=== PATIENT | female | born 1985 | race American Indian/Alaskan Native ===

== ENCOUNTER 2020-12-13 14:40 | Emergency (ER) | payer OTHER ==
[2020-12-13] MEDS ORDERED: KETOROLAC 60 MG/2 ML INJ IM ONE (16:45)
--- NOTE | 2020-12-13 16:45 | Emergency Department Report ---
ED ENT HPI - General Chief complaint: Earache Stated complaint: VOMITING/DIARRHEA EAR PAIN Time Seen by Provider: 12/13/20 16:44 Source: patient Mode of arrival: Ambulatory Limitations: No Limitations - History of Present Illness Initial comments: 35 yr old female presents to ED with complaints of left ear pain. Patient states she has been having issues with her ears including left ear pain "for a while". She states she saw an hydrometeorology teacher one several years ago and was told that she was losing her hearing in her right ear and possibly had Mnire's disease. She states that her PCP is at the [facility] and she been try to get a referral to a market research coordinator but has been unsuccessful. She does have a history of allergies and has been taking loratadine as well as Flonase. Patient states that she went to [facility] last week because the pain the left ear got worse. She was diagnosed with otitis media to the left ear and was prescribed an antibiotic which she completed but 2 days ago the pain got worse again in the left ear with associated headache mainly to the crown and occipital aspect of her head, and the pain radiates down into her neck and her back and she states that she has been nauseous and has vomited 4 times and has had 3 episodes of diarrhea in the past 2 days. She reports no other symptoms at this time. MD complaint: ear pain -: year(s) - Related Data Previous Rx's Medication Instructions Recorded Last Taken Type Ibuprofen [Motrin] 800 mg PO Q8HR PRN #30 tablet 12/13/20 Unknown Rx Ondansetron [Zofran Odt] 4 mg PO Q8HR PRN #10 tab.rapdis 12/13/20 Unknown Rx methylPREDNISolone [Medrol 4MG 4 mg PO DAILY #1 tab.ds.pk 12/13/20 Unknown Rx DOSEPAK (21 tabs)] Allergies Allergy/AdvReac Type Severity Reaction Status Date / Time Penicillins Allergy Hives Verified 12/13/20 15:33 ED Dental HPI - General Chief complaint: Earache Stated complaint: VOMITING/DIARRHEA EAR PAIN Time Seen by Provider: 12/13/20 16:44 Source: patient Mode of arrival: Ambulatory Limitations: No Limitations - Related Data Previous Rx's Medication Instructions Recorded Last Taken Type Ibuprofen [Motrin] 800 mg PO Q8HR PRN #30 tablet 12/13/20 Unknown Rx Ondansetron [Zofran Odt] 4 mg PO Q8HR PRN #10 tab.rapdis 12/13/20 Unknown Rx methylPREDNISolone [Medrol 4MG 4 mg PO DAILY #1 tab.ds.pk 12/13/20 Unknown Rx DOSEPAK (21 tabs)] Allergies Allergy/AdvReac Type Severity Reaction Status Date / Time Penicillins Allergy Hives Verified 12/13/20 15:33 ED Review of Systems ROS: Stated complaint: VOMITING/DIARRHEA EAR PAIN Other details as noted in HPI Comment: All other systems reviewed and negative Constitutional: denies: chills, fever Eyes: denies: eye pain, eye discharge, vision change ENT: ear pain. denies: dental pain, hearing loss, epistaxis, congestion Respiratory: denies: cough, shortness of breath, SOB with exertion, SOB at rest, wheezing Cardiovascular: denies: chest pain, palpitations, edema, syncope, paroxysmal nocturnal dyspnea Gastrointestinal: nausea, vomiting. denies: abdominal pain, diarrhea, constipation, hematemesis, melena, hematochezia Genitourinary: denies: urgency, dysuria, frequency, hematuria, discharge, abnormal menses, dyspareunia Musculoskeletal: denies: back pain, joint swelling, arthralgia, myalgia Skin: denies: rash, lesions, change in color, change in hair/nails, pruritus Neurological: headache. denies: weakness, numbness, paresthesias, confusion, abnormal gait, vertigo Psychiatric: denies: anxiety, depression, auditory hallucinations, visual hallucinations, homicidal thoughts, suicidal thoughts Hematological/Lymphatic: denies: easy bleeding, easy bruising, swollen glands ED Past Medical Hx - Past Medical History Previous Medical History?: Yes Hx Asthma: Yes - Surgical History Past Surgical History?: Yes Additional Surgical History: Tonsils, TL - Medications Home Medications: Home Medications Medication Instructions Recorded Confirmed Last Taken Type Ibuprofen [Motrin] 800 mg PO Q8HR PRN #30 tablet 12/13/20 Unknown Rx Ondansetron [Zofran Odt] 4 mg PO Q8HR PRN #10 tab.rapdis 12/13/20 Unknown Rx methylPREDNISolone [Medrol 4MG 4 mg PO DAILY #1 tab.ds.pk 12/13/20 Unknown Rx DOSEPAK (21 tabs)] ED Physical Exam - General Limitations: No Limitations General appearance: alert, in no apparent distress - Head Head exam: Present: atraumatic, normocephalic, normal inspection - Eye Eye exam: Present: normal appearance, PERRL, EOMI Pupils: Present: normal accommodation - Expanded ENT Exam Expanded TM/Canal exam: Effusion: Right TM, Left TM Mouth exam: Present: normal external inspection. Absent: drooling, trismus, muffled voice, tongue normal, tongue elevation, laceration Throat exam: Positive: normal inspection. Negative: tonsillar erythema, tonsillomegaly, tonsillar exudate, R peritonsillar mass, L peritonsillar mass - Neck Neck exam: Present: normal inspection, full ROM. Absent: tenderness, meningismus - Respiratory Respiratory exam: Present: normal lung sounds bilaterally. Absent: respiratory distress, wheezes, rales, rhonchi - Cardiovascular Cardiovascular Exam: Present: regular rate, normal rhythm, normal heart sounds - GI/Abdominal GI/Abdominal exam: Present: soft. Absent: distended, tenderness, guarding, rebound - Neurological Exam Neurological exam: Present: alert, oriented X3, CN II-XII intact, normal gait - Psychiatric Psychiatric exam: Present: normal affect, normal mood - Skin Skin exam: Present: intact ED Course Vital Signs 12/13/20 12/13/20 15:33 17:22 Temperature 99.0 F Pulse Rate 83 75 Respiratory 18 Rate Blood Pressure 154/104 Blood Pressure 150/94 [Right] O2 Sat by Pulse 100 Oximetry ED Medical Decision Making - Medical Decision Making 35 yr old female presents to ED with complaints of left ear pain. Patient states she has been having issues with her ears including left ear pain "for a while". She states she saw an hydrometeorology teacher one several years ago and was told that she was losing her hearing in her right ear and possibly had Mnire's disease. She states that [facility] and she been try to get a referral to a market research coordinator but has been unsuccessful. She does have a history of allergies and has been taking loratadine as well as Flonase. Patient states that she went to [facility] because the pain the left ear got worse. She was diagnosed with otitis media to the left ear and was prescribed an antibiotic which she completed but 2 days ago the pain got worse again in the left ear with associated headache mainly to the crown and occipital aspect of her head, and the pain radiates down into her neck and her back and she states that she has been nauseous and has vomited 4 times and has had 3 episodes of diarrhea in the past 2 days. She reports no other symptoms at this time. Patient is well-appearing, not toxic and not in any acute distress. She appears well-hydrated. She is awake alert and oriented x3 and neurologically intact with a normal gait. Physical exam does not show any signs of perforated eardrum, otitis media or otitis externa, mastoiditis, meningitis or any other intracranial abnormality, and she has a soft nontender abdomen. No active vomiting during stay. No signs of sepsis.There is no indication for any testing or imaging at this time. Symptoms could be viral related at this time, diarrhea could even be related to the antibiotics which she just completed (not concerned for C-diff a this time). Discussed suspected diagnosis and treatment plan with patient. Informed her she really needs to follow-up with ENT for evaluation of her ear pain. Patient expressed understanding of instructions and agree with plan. Upon discharge when triage nurse repeated her blood pressure, the repeat blood pressure was 168/100 and again 154/104. Patient denied any significant past medical history including history of hypertension but she does admit that whenever she would go to the ER her blood pressure would be up but has never been addressed by her primary care doctor. Informed patient that will give dose of clonidine here, and recheck her BP after a few minutes but looks like we will have to start on her low dose BP meds and have her f/u with PCP to continue monitoring her BP. Pt expressed understanding of instructions and agreed with plan. 1828: Called patient several times to have a blood pressure rechecked but she was noted to be found. Patient apparently left the ER without notifying myself or the nurse at triage. She left with initial discharge instructions and before I could make any adjustments to the discharge instructions and prescribe her the blood pressure medication. Critical care attestation.: If time is entered above; I have spent that time in minutes in the direct care of this critically ill patient, excluding procedure time. ED Disposition Clinical Impression: Chronic left ear pain, Eustachian tube dysfunction, Headache, Vomiting and diarrhea, Uncontrolled hypertension Disposition: ELOPED Is pt being admited?: No Does the pt Need Aspirin: No Condition: Stable Instructions: Diarrhea, Adult, Eustachian Tube Dysfunction, Tension Headache, Adult, [id number], Nausea and Vomiting, Adult, [id number], Earache, Adult, Hypertension (ED) Additional Instructions: I recommend that you continue taking your antihistamine daily, also use the nasal spray that you have at home consistently and daily as prescribed. Take the Medrol Dosepak and ibuprofen as prescribed. Zofran as prescribed to help with nausea. You can take Imodium from [id number] if you continue to have diarrhea. Most importantly I recommend that you follow-up with an market research coordinator for further evaluation of your ear pain. Return to the ER if your symptoms changes or worsens in any way. Prescriptions: methylPREDNISolone [Medrol 4MG DOSEPAK (21 tabs)] 4 mg PO DAILY #1 tab.ds.pk Ibuprofen [Motrin] 800 mg PO Q8HR PRN #30 tablet PRN Reason: pain Ondansetron [Zofran Odt] 4 mg PO Q8HR PRN #10 tab.rapdis PRN Reason: Nausea Referrals: DANAY DONOVAN MD [Staff Physician] - 3-5 Days Forms: Work/School Release Form(ED) Time of Disposition: 16:58
[2020-12-13] MEDS ORDERED: ONDANSETRON 4 MG ODT TAB PO ONE (16:48)
[2020-12-13] MEDS ORDERED: cloNIDine 0.2 MG TAB PO ONE (17:21)
[2020-12-13 17:23] VITALS: BP 154/104
== END 2020-12-13 18:26 | disposition left against medical advice (07) ==
LOC: ED 14:40
DX: H69.82 Other specified disorders of Eustachian tube, left ear (principal); J45.909 Unspecified asthma, uncomplicated; H92.02 Otalgia, left ear; G89.29 Other chronic pain; R51.9 Headache, unspecified; R11.10 Vomiting, unspecified; R19.7 Diarrhea, unspecified; I10 Essential (primary) hypertension; Z98.890 Other specified postprocedural states; Z79.1 Long term (current) use of non-steroidal anti-inflammatories (NSAID); Z79.899 Other long term (current) drug therapy; Z88.0 Allergy status to penicillin
CPT/HCPCS: 96372; 99282; J1885; Q0162

== ENCOUNTER 2021-04-17 20:56 | Emergency (ER) | payer OTHER ==
[2021-04-17 22:06] VITALS: BP 131/88
[2021-04-17 22:48] LABS: Basophils % (Auto) 0.3 % (0.0-1.8); Eosinophils # (Auto) 0.3 K/mm3 (0.0-0.4); Eosinophils % (Auto) 3.2 % (0.0-4.3); Hematocrit 41.3 % (30.3-42.9); Hemoglobin 13.6 gm/dl (10.1-14.3); Lymphocytes # (Auto) 3.4 K/mm3 (1.2-5.4); Lymphocytes % (Auto) 37.3 % (13.4-35.0); Mean Corpuscular HGB Conc 33 % (30-34); Mean Corpuscular Volume 96 fl (79-97); Monocytes # (Auto) 0.7 K/mm3 (0.0-0.8); Monocytes % (Auto) 7.8 % (0.0-7.3); Platelet Count 310 K/mm3 (140-440); Red Cell Distribution Width 13.9 % (13.2-15.2)
[2021-04-17 22:56] LABS: Alanine Aminotransferase 16 units/L (7-56); Albumin 4.4 g/dL (3.9-5); BUN/Creatinine Ratio 14; Blood Urea Nitrogen 15 mg/dL (7-17); Calcium 10.1 mg/dL (8.4-10.2); Hemolysis Index 6
--- NOTE | 2021-04-17 22:58 | Emergency Department Report ---
ED General Adult HPI - General Stated complaint: POSSIBLE UTI Time Seen by Provider: 04/17/21 22:13 - History of Present Illness Initial comments: 35-year-old -Citizen Of The [place] female presents emergency department complaining of being treated for urinary tract infection but 3 to 4 weeks ago was still having some of the same residual symptoms. Just took her medications and is entirely continued to have a burning sensation with urination. She reports no headache no hematuria no fever, chills, sweats no chest pain or palpitations no nausea no vomiting. Is also been experiencing some bloating after eating and extreme heartburn and what ever medication she was using [id number] is not quite resolving the issue. Consistency: constant Improves with: none Associated Symptoms: denies other symptoms Treatments Prior to Arrival: none - Related Data Previous Rx's Medication Instructions Recorded Last Taken Type Ibuprofen [Motrin] 800 mg PO Q8HR PRN #30 tablet 12/13/20 Unknown Rx Ondansetron [Zofran Odt] 4 mg PO Q8HR PRN #10 tab.rapdis 12/13/20 Unknown Rx methylPREDNISolone [Medrol 4MG 4 mg PO DAILY #1 tab.ds.pk 12/13/20 Unknown Rx DOSEPAK (21 tabs)] Bismuth Subsalicylate 262 mg PO BID #30 tab.chew 04/18/21 Unknown Rx [Pepto-Bismol] Omeprazole 40 mg PO DAILY #30 capsule.dr 04/18/21 Unknown Rx Ondansetron [Zofran Odt] 4 mg PO Q8HR #20 tab.rapdis 04/18/21 Unknown Rx Tetracycline HCl 500 mg PO BID #20 capsule 04/18/21 Unknown Rx metroNIDAZOLE [Flagyl TAB] 500 mg PO Q12HR #20 tab 04/18/21 Unknown Rx Allergies Allergy/AdvReac Type Severity Reaction Status Date / Time Penicillins Allergy Hives Verified 12/13/20 15:33 ED Review of Systems ROS: Stated complaint: POSSIBLE UTI Other details as noted in HPI Comment: All other systems reviewed and negative ED Past Medical Hx - Past Medical History Hx Asthma: Yes - Surgical History Past Surgical History?: Yes Additional Surgical History: Tonsils, TL - Social History Smoking Status: Never Smoker Substance Use Type: None - Medications Home Medications: Home Medications Medication Instructions Recorded Confirmed Last Taken Type Ibuprofen [Motrin] 800 mg PO Q8HR PRN #30 tablet 12/13/20 Unknown Rx Ondansetron [Zofran Odt] 4 mg PO Q8HR PRN #10 tab.rapdis 12/13/20 Unknown Rx methylPREDNISolone [Medrol 4MG 4 mg PO DAILY #1 tab.ds.pk 12/13/20 Unknown Rx DOSEPAK (21 tabs)] Bismuth Subsalicylate 262 mg PO BID #30 tab.chew 04/18/21 Unknown Rx [Pepto-Bismol] Omeprazole 40 mg PO DAILY #30 capsule.dr 04/18/21 Unknown Rx Ondansetron [Zofran Odt] 4 mg PO Q8HR #20 tab.rapdis 04/18/21 Unknown Rx Tetracycline HCl 500 mg PO BID #20 capsule 04/18/21 Unknown Rx metroNIDAZOLE [Flagyl TAB] 500 mg PO Q12HR #20 tab 04/18/21 Unknown Rx ED Physical Exam - General General appearance: alert, in no apparent distress - Head Head exam: Present: atraumatic, normocephalic - Eye Eye exam: Present: normal appearance, PERRL, EOMI Pupils: Present: normal accommodation - ENT ENT exam: Present: normal orophraynx, mucous membranes dry, mucous membranes moist, TM's normal bilaterally - Neck Neck exam: Present: normal inspection, full ROM. Absent: thyromegaly - Respiratory Respiratory exam: Present: normal lung sounds bilaterally. Absent: respiratory distress, chest wall tenderness, decreased breath sounds - Cardiovascular Cardiovascular Exam: Present: regular rate, normal rhythm. Absent: systolic murmur, diastolic murmur, rubs, gallop - GI/Abdominal GI/Abdominal exam: Present: soft, normal bowel sounds - Extremities Exam Extremities exam: Present: normal inspection - Back Exam Back exam: Present: normal inspection - Neurological Exam Neurological exam: Present: alert, oriented X3 - Psychiatric Psychiatric exam: Present: normal affect, normal mood - Skin Skin exam: Present: warm, dry, intact, normal color. Absent: rash ED Course Vital Signs 04/17/21 22:04 Temperature 98.6 F Pulse Rate 85 Respiratory 18 Rate Blood Pressure 131/88 O2 Sat by Pulse 99 Oximetry ED Medical Decision Making - Lab Data Result diagrams: 04/17/21 22:22 04/17/21 22:22 - Medical Decision Making This patient presents with abdominal pain of unclear etiology. Their evaluation has not identified a emergent etiology for the abdominal pain. Specifically, given the very benign exam, normal laboratory studies, and lack of significant risk factors, I have a very low suspicion for appendicitis, ischemic bowel, bowel perforation, or any other life threatening disease. I have discussed with the patient the level of uncertainty with undifferentiated abdominal pain and clearly explained the need to follow-up as noted on the discharge instructions, or return to the Emergency Department immediately if the pain worsens, develops fever, persistent and uncontrollable vomiting, or for any new symptoms or concerns. I discussed with the patient that this presentation today for abdominal pain could represent a significant risk for an acute abdominal process. Although the tests in the ED were essentially normal, there is still a possibility of a process such as appendicitis, diverticulitis, cholecystitis, ulcer, early bowel obstruction, mesenteric ischemia, kidney stone, or even kidney infection which could subsequently cause disability or . The patient understands that they must return within 24 hours for a recheck or see their ph ysician within 24 hours for re-exam due to the possibility of significant surgical or medical process. Critical care attestation.: If time is entered above; I have spent that time in minutes in the direct care of this critically ill patient, excluding procedure time. ED Disposition Clinical Impression: Dysuria, GERD (gastroesophageal reflux disease) Disposition: 01 HOME / SELF CARE / HOMELESS Is pt being admited?: No Does the pt Need Aspirin: No Condition: Stable Instructions: Indigestion, [id number], Food Choices for Gastroesophageal Reflux Disease, Adult, [id number], Heartburn, Capsule Esophageal pH Testing, Dysuria, Indigestion Additional Instructions: You have been evaluated emergency department today for abdominal pain. Your evaluation did not show evidence of any medical conditions requiring emergent intervention at this time. Your lipase was it was elevated but not to a significant degree significant pancreatitis does not appear to be present at thi s time please drink plenty of fluids. Please schedule an appointment with your primary care physician. Return to emergency department if you experience worsening uncontrolled pain, fevers of 100.4 or greater, recurrent vomiting, inability to tolerate food or fluids by mouth, bloody stools or vomit, black tarry stools, or any other concerning symptoms. Prescriptions: metroNIDAZOLE [Flagyl TAB] 500 mg PO Q12HR #20 tab Omeprazole 40 mg PO DAILY #30 capsule.dr [place] Subsalicylate [Pepto-Bismol] 262 mg PO BID #30 tab.chew Tetracycline HCl 500 mg PO BID #20 capsule Ondansetron [Zofran Odt] 4 mg PO Q8HR #20 tab.charli Referrals: [facility] [Provider Group] - 3-5 Days
[2021-04-17 23:26] LABS: Bilirubin,Urine NEG (Negative); Blood,Urine SM (Negative); Color,Urine Straw (Yellow); Protein,Urine <15 mg/dL mg/dL (Negative); Urobilinogen,Urine < 2.0 mg/dL (<2.0)
[2021-04-17 23:29] LABS: HCG Qualitative,Urine Negative (Negative)
== END 2021-04-18 03:49 | disposition home or self-care (01) ==
LOC: ED 20:56
DX: R30.0 Dysuria (principal); K21.9 Gastro-esophageal reflux disease without esophagitis; Z88.0 Allergy status to penicillin; J45.909 Unspecified asthma, uncomplicated
CPT/HCPCS: 36415; 80053; 81001; 81025; 85025; 99283